=== PATIENT | male | born 1985 | race Caucasian/White ===

== ENCOUNTER 2016-12-26 01:10 | Emergency (ER) | payer OTHER ==
[2016-12-26] MEDS ORDERED: Pantoprazole 40 MG VIAL ONE (01:29)
[2016-12-26] MEDS ORDERED: Ondansetron HCl/PF 4 MG/2 ML Vial ONE (01:29)
[2016-12-26 01:42] LABS: #Basophils 0.1 thou/uL (0.0-0.2); #Eosinphils 0.4 thou/uL (0.0-0.7); #Lymphocytes 2.9 thou/uL (1.20-3.40); #Monocytes 0.5 thou/uL (0.11-0.59); #Neutrophils 5.5 thou/uL (1.40-6.50); %Basophils 0.7 % (0.0-1.0); %Eosinophils 4.1 % (0.0-10.0); %Monocytes 5.6 % (0.0-10.0); Mean Platelet Volume 8.1 fL (7.4-10.4); Red Blood Cell (RBC) Count 5.32 mill/uL (4.70-6.10); White Blood Cell (WBC) Count 9.5 thou/uL (4.8-10.8)
[2016-12-26 01:46] LABS: PTT 27.3 SEC (22.9-36.1)
[2016-12-26 01:53] LABS: ALT (SGPT) 28 U/L (0-55); AST (SGOT) 26 U/L (5-34); Alkaline Phosphatase 68 U/L (40-150); Anion Gap 14 mmol/L (10-20); BUN (Urea Nitrogen) 16 mg/dL (8.9-20.6); Calc. Creatinine Clearance 0 mL/min (70-130); Calcium 9.4 mg/dL (7.8-10.44); Carbon Dioxide 29 mmol/L (22-29); Chloride 103 mmol/L (98-107); Estimated GFR-MDRD 83; Globulin 2.5 g/dL (2.4-3.5); Lipase 29 U/L (8-78); Protein, Total 7.3 g/dL (6.0-8.3)
--- NOTE | 2016-12-26 07:16 | RAD ---
PORTABLE CHEST: Date: 12/26/16 An AP portable film at 0131 hours shows a normal sized heart and clear lungs. No infiltrate or effus ion seen. The mediastinum appears normal and the trachea is midline. IMPRESSION: No acute thoracic findings. POS: HOME
== END 2016-12-26 02:48 | disposition home or self-care (01) ==
LOC: BURERS 01:10
DX: K52.9 Noninfective gastroenteritis and colitis, unspecified (principal); K22.6 Gastro-esophageal laceration-hemorrhage syndrome
CPT/HCPCS: 71010; 80053; 83690; 85025; 85610; 85730; 96361; 96374; 96375; C9113; J2405